=== PATIENT | male | born 1980 | race African-American/Black ===

== ENCOUNTER 2017-06-16 12:08 | Emergency (ER) | payer OTHER ==
[~2017-06-16] VITALS: Ht 172.7 cm; Wt 166.5 kg
--- NOTE | ~2017-06-16 | CR63 ---
[facility] A Service of [facility] RADIOLOGY TEXT RESULTS PATIENT: EVELIN KENYON LOCATION: SED : 76 UNIT #: [id number] AGE: [address]: Dudley Thorne MD SEX: M ORDER DR: [id number] [address] [address] [id number] E MR#: [id number] Acc #: [id number] NAME: EVELIN KENYON : 1980 SEX: M STUDY DATE/TIME: 06/16/2017 13:34 UNIT: SED ROOM: STUDY DESCRIPTION: CR Chest 2 View Attending Physician: Dudley Thorne M.D. Ordering Physician: Dudley Thorne M.D. Primary Care Physician: [facility] MEDICAL IMAGING REPORT This report is preliminary unless electronic signature is present. EXAM Chest, 2 views; 06/16/2017, 1334 hours. CLINICAL HISTORY 37-year-old with headache, chest pain, elevated blood pressure today. COMPARISON CT chest 12/03/2015 and chest x-ray 12/01/2015. FINDINGS Upright PA and lateral views of the chest demonstrate moderate enlargement of the cardiac silhouette similar to prior studies. The aorta appears normal. There is mild pulmonary venous distension. There is mild basilar vascular prominence. No definite edema, pneumonia or effusions seen. Lung bases are somewhat difficult to evaluate given the large body habitus. IMPRESSION Stable enlarged cardiac silhouette. There is basilar vascular crowding. Hazy bibasilar densities on the PA view felt likely related to overlying soft tissues given the large body habitus. No definite acute abnormalities are seen at the lung bases on the lateral view. Dictated by... Jolynn Singer M.D. THIS IS AN ELECTRONICALLY VERIFIED REPORT Jolynn Singer M.D. at 06/17/2017 9:33 AM Wallace TD: 06/16/2017 18:58 JOB #: [id number] [facility] A Service of [facility] RADIOLOGY TEXT RESULTS PATIENT: EVELIN KENYON [id number] [birth year] UNIT #: [id number] AGE: [address]: Dudley Thorne MD SEX: M ORDER DR: MEDICAL IMAGING REPORT Page 1 of 1
--- NOTE | ~2017-06-16 | EKG ---
PATIENT: EVELIN KENYON UNIT #: [id number] Ventricular Rate: 108 BPM Atrial Rate: 108 BPM QRS Duration: 78 ms Q-T Interval: 370 ms QTC Calculation(Bezet): 495 ms Calculated R Fleming: 15 degrees Calculated T Fleming: 19 degrees Diagnosis Line: Atrial fibrillation with rapid ventricular Diagnosis Line: response with premature ventricular or aberrantly Diagnosis Line: conducted complexes Diagnosis Line: Abnormal ECG Diagnosis Line: When compared with ECG of 01-DEC-2015 07:54, Diagnosis Line: No significant change was found Diagnosis Line: Confirmed by ANANDA MITCHELL MD ([id number]) on Diagnosis Line: 06/19/2017 11:11:27 AM INTERPRETING MD: PAULA CHRISTINE
--- NOTE | ~2017-06-16 | CT71 ---
[facility] A Service [facility] RADIOLOGY TEXT RESULTS PATIENT: EVELIN KENYON LOCATION: SED : 76 UNIT #: [id number] AGE: [address]: Dudley Thorne MD SEX: M ORDER DR: [id number] [place] [id number] E MR#: [id number] Acc #: [id number] NAME: EVELIN KENYON : 1980 SEX: M STUDY DATE/TIME: 06/16/2017 13:33 UNIT: SED ROOM: STUDY DESCRIPTION: CT Head Wo Contrast Attending Physician: Dudley Thorne M.D. Ordering Physician: Dudley Thorne M.D. Primary Care Physician: [facility] MEDICAL IMAGING REPORT This report is preliminary unless electronic signature is present. EXAM CT of the head. INDICATIONS Continuous headache for [address] of the head without contrast. This CT exam was performed with one or more of the following radiation dose reduction techniques: automatic exposure control, adjustment of mA and/or kV according to patient size, and iterative reconstruction. COMPARISON CT of head 09/06/2010. FINDINGS Axial noncontrast images were obtained from the skull base to the vertex. Ventricular size and configuration are normal. There is no evidence of acute infarct or hemorrhage. There are no extra-axial fluid collections. No mass lesion or mass effect is seen. There are no skull fractures. There is mild exophthalmos. IMPRESSION Normal noncontrast head CT. Dictated by... Pawel Braun M.D. THIS IS AN ELECTRONICALLY VERIFIED REPORT Pawel Braun M.D. at 06/17/2017 2:50 PM [facility] A Service [facility] RADIOLOGY TEXT RESULTS PATIENT: EVELIN KENYON LOCATION: SED : 76 UNIT #: [id number] AGE: [address]: Dudley Thorne MD SEX: M ORDER DR: Barb TD: 06/16/2017 18:51 JOB #: [id number] MEDICAL IMAGING REPORT Page 1 of 1
[~2017-06-16 12:08] MED LIST: ALDACTONE25 MG PO; AMIODARONE PO; ANEXSIA 5/325 M1 TA1 PO; ASPIRIN81 MG PO; CARDIZEM CD240 MG PO; COUMADIN5 MG PO; FLEXERIL10 MG PO; HYDRALAZINE HC100 MG PO; IMDUR-ER60 M2 PO; K-DUR20 ME1 PO; LASIX PO; LEVAQUIN750 MG PO; LISINOPRIL PO; LISINOPRIL5 MG PO; LOPRESSOR PO; LORTAB 5-325 M1 EACH PO; LORTAB 5/500 TA1 TA1 PO; MICRO-K10 MEQ PO; MOTRIN400 M1 PO; NAPROSYN500 MG PO; NEBCIN80 MG/2 ML; NORCO1 TAB 10/3; NORVASC PO; POTASSIUM CHLO10 ME2 PO; PRINIVIL10 MG PO; PRINIVIL20 M1 PO; TRAMADOL HCL50 M2 PO; VOLTAREN75 MG PO; XARELTO20 MG PO
[2017-06-16 12:59] LABS: BASOPHIL% 0.3 % (0-2.5); EOSINOPHIL# 0.3 X10e3 (0-0.7); EOSINOPHIL% 2.7 % (0.0-7.0); HEMOGLOBIN 14.6 gm/dL (13.0-16.0); LYMPHOCYTE# 1.9 X10e3 (1.0-3.5); LYMPHOCYTE% 17.9 % (17.0-45.0); MEAN CELL VOLUME 85.4 FL (83-96); MEAN PLATELET VOLUME 8.2 FL (6.5-11.5); MONOCYTE# 0.5 X10e3 (0-1.0); MONOCYTE% 4.4 % (3.0-12.0); NEUTROPHIL# 7.9 X10e3 (1.5-7.1); NEUTROPHIL% 74.7 % (40-75); PLATELET COUNT 224 X10e3 (140-420); RED BLOOD COUNT 5.03 X10e (3.90-5.60); RED CELL DISTRIBUTION WIDTH 14.6 % (11.0-15.5); WHITE BLOOD COUNT 10.5 X10e3 (4.0-10.5)
[2017-06-16 13:00] LABS: DIFF IND NO
[2017-06-16 13:30] LABS: ALBUMIN SERUM 3.7 g/dL (3.5-5.0); BILIRUBIN, DIRECT 0.1 mg/dL (0.0-0.2); BILIRUBIN,INDIRECT 0.8 mg/dL (0.0-0.9); BILIRUBIN,TOTAL 0.9 mg/dL (0.2-2.0); BUN/CREATININE RATIO 8.75; CALCIUM SERUM 8.5 mg/dL (8.4-10.2); CREATININE SERUM 0.8 mg/dL (0.6-1.4); GLOM FILT RATE Estimated 130.5 mL/min (>60); POTASSIUM 3.8 mmol/L (3.5-5.1); PROTEIN TOTAL SERUM 7.3 g/dL (6.0-8.3)
[2017-06-16 13:31] LABS: INR 1.2; PROTHROMBIN TIME (PATIENT) 13.3 SECONDS (9.5-12.4)
[2017-06-16 13:39] LABS: PARTIAL THROMBOPLASTIN TIME 34.5 SECONDS (25.6-38.1)
[2017-06-16 15:15] LABS: POC - CKMB 1.2 ng/mL (0.0-7.9); POC - TROPONIN <0.05 ng/mL (<=0.05)
== END 2017-06-16 16:36 | disposition home or self-care (01) ==
LOC: SED 12:08
PROVIDERS: Emergency Medicine
DX: R51 Headache (principal); I10 Essential (primary) hypertension; F32.9 Major depressive disorder, single episode, unspecified; I48.91 Unspecified atrial fibrillation; I50.9 Heart failure, unspecified
CPT/HCPCS: 36415; 70450; 71020; 80048; 80076; 82553; 83880; 84484; 85025; 85610; 85730; 93005; 96372; 96374; 96375; 99285; J1650; J2270; J2405